=== PATIENT | male | born 1980 | race Caucasian/White ===

== ENCOUNTER 2021-11-15 16:14 | Emergency (ER) | payer OTHER ==
[~2021-11-15] VITALS: Ht 172.7 cm; Wt 64.0 kg
[2021-11-15 16:50] VITALS: BP 135/90
--- NOTE | 2021-11-15 16:54 | NUR ---
JEANNETTE OFFICERS FOR C/O COUGH AND FEVER. IN ROOM AIR AND DENIES SOB. RESPIRATION REGULAR AND UNLABORED. WILL CONTINUE TO MONITOR THE PATIENT.
--- NOTE | 2021-11-15 17:00 | NUR ---
COVID ANTIGEN SWAB DONE AND SENT TO THE LAB
--- NOTE | 2021-11-15 18:16 | NUR ---
Patient discharged in stable condition with [employer] officers. Written and verbal after care instructions given. The patient and the officers verbalized understanding of instruction.
== END 2021-11-15 18:17 ==
LOC: ER 16:20
DX: R05.9 Cough, unspecified (principal); Z20.822 Contact with and (suspected) exposure to COVID-19; R03.0 Elevated blood-pressure reading, without diagnosis of hypertension
CPT/HCPCS: 99283; 87426; C9803